=== PATIENT | male | born 1965 | race Caucasian/White ===

== ENCOUNTER 2025-05-23 23:00 | Observation (INO) | payer OTHER, SELFPAY ==
[2025-05-23 16:38] VITALS: BP 153/85
[2025-05-23 16:53] LABS: Hematocrit 48.8 % (39.0-52.0); Hemoglobin 17.3 g/dL (13.0-18.0); Mean Corp Hgb Conc. 35.5 g/dL (33.0-37.0); Mean Corpuscular Volume 87.3 fL (80.0-94.0); Nucleated Red Blood Cells % 0 % (-); Platelet Count 291 10^3/uL (130-400); Red Cell Dist. Width 11.9 % (11.5-14.5)
[2025-05-23 17:09] LABS: Urine Character Clear (Clear)
[2025-05-23 17:12] LABS: ALT (SGPT) 16 U/L (0-50); AST (SGOT) 29 U/L (17-59); Albumin 4.8 g/dl (3.5-5.0); Alkaline Phosphatase 80 U/L (38-126); Blood Urea Nitrogen 24 mg/dl (9-20); Calcium 10.6 mg/dl (8.4-10.2); Carbon Dioxide 27 mmol/L (22-30); Chloride 103 mmol/L (98-107); Glucose 107 mg/dl (70-99); Lipase 61 U/L (23-300); Potassium 4.3 mmol/L (3.5-5.1); Sodium 138 mmol/L (135-145); Total Protein 7.7 g/dl (6.3-8.2); eGFR 53.96
[2025-05-23 17:51] LABS: Urine Squamous Cell 0-2 /LPF (Few); Urine White Cell 0-2 /HPF (0-5)
--- NOTE | 2025-05-23 20:01 | ED.GENMED ---
History of Present Illness
<Rick Lopez MD, Resident - Last Filed: 05/23/25 22:15>
General
Chief Complaint: Abdominal Pain
Source: patient and significant other
Time Seen by Provider: 05/23/25 19:59
Nursing documentation reviewed up to this point in time: agreed with
History of Present Illness
History of Present Illness:
59 year old male with no significant past medical history comes to the ED due to sharp left lower quadrant abdominal pain that started around 10:30 pm last night. He has been having nausea and vomiting due to the pain. He says that the pain stays in
one area and has not had any fever or chills. He says that he has had no issues with urination and has not been around any sick contacts. He went to his primary care physician today who sent him to the ED to get imaging done because she was
suspecting possible Diverticulitis.
Past History
<Rick Lopez MD, Resident - Last Filed: 05/23/25 22:15>
Past History
ED Past Medical History: None
ED Past Surgical History: None
Patient has exhibited threatening behavior?: No
Social History
Tobacco: Non-smoker
Alcohol: Occasional
Drug: None
Personal:
Living: with family
Employment: Employed
Review of Systems
<Rick Lopez MD, Resident - Last Filed: 05/23/25 22:15>
Review of Systems
Allergies reviewed?: Yes
Constitutional: Reports no symptoms
EENT: Reports no symptoms
Respiratory: Reports no symptoms
Cardiac: Reports no symptoms
ABD/GI: Reports abdominal pain (Left lower quadrant), nausea and vomiting
: Reports no symptoms
Musculoskeletal: Reports no symptoms
Skin: Reports no symptoms
Neurological: Reports no symptoms
Endocrine: Reports no symptoms
Hematologic/Lymphatic: Reports no symptoms
Psychiatric: Reports no symptoms
Phy Exam
<Rick Lopez MD, Resident - Last Filed: 05/23/25 22:15>
General Physical Exam
General Presentation: mild distress
General Skin: warm and dry
General Habitus: normal
General Mental: alert
General Hydration: appears well hydrated
Cardiovascular Exam
Cardiovascular Exam: regular rate/rhythm, no edema and no murmur
Pulmonary Exam
Pulmonary Exam: lungs clear, no respiratory distress, no crackles and no wheezing
Gastrointestinal Exam
Gastrointestinal Exam: normal bowel sounds, soft and non distended
Palpation: left upper quadrant: No tenderness, left lower quadrant: Mild tenderness, right upper quadrant: No tenderness and right lower quadrant: No tenderness
Skin Exam
Skin Exam: normal color and warm/dry
Course
<Rick Lopez MD, Resident - Last Filed: 05/23/25 22:15>
Orders/Labs/Results
Orders:
Orders
05/23/25 16:47
Complete Blood Count/With Diff Urgent
Comprehensive Metabolic Panel Urgent
Lipase Urgent
Urinalysis Urgent
Date Specimen was Collected: 05/23/25
Time Specimen was Collected: 16:41
Urine Microscopic Urgent
Date Specimen was Collected: 05/23/25
Time Specimen was Collected: 16:41
05/23/25 20:12
IV Insert/Care/Rem.- Treatment PRN
0.9% Sodium Chloride 1000 ml [Nss] 1,000 ml IV BOLUS
05/23/25 20:13
CT Abd/pel Without Iv Or Oral Urgent
Comment:
Reason For Exam: Left lower quadrant sharp abdominal pain
05/23/25 21:03
HYDROmorphone [Dilaudid] 1 mg IV NOW STA
Ondansetron Injectable [Zofran] 4 mg IV NOW STA
Tamsulosin [Flomax] 0.4 mg PO NOW STA
Abnormal Lab Results
05/23/25
16:47
WBC 14.0 H 10^3/uL
(4.8-10.8)
Abs Immat Gran (auto) 0.1 H 10^3/uL
(0-0.05)
Absolute Neuts (auto) 11.0 H 10^3/uL
(1.4-6.5)
Absolute Monos (auto) 1.3 H 10^3/uL
(0.1-0.6)
Neutrophils % 78.4 H %
(42.2-75.2)
Lymphocytes % 10.9 L %
(20.5-51.1)
Monocytes % 9.5 H %
(1.7-9.3)
BUN 24 H mg/dl
(9-20)
Creatinine 1.5 H mg/dL
(0.7-1.3)
Glucose 107 H mg/dl
(70-99)
Calcium 10.6 H mg/dl
(8.4-10.2)
Urine Ketones 2+ A
(Negative)
Urine Occult Blood 4+ A
(Negative)
Urine RBC 11-15 A /HPF
(0-2)
Urine Albumin 1+ A
(Neg - Trace)
05/23/25 16:47
05/23/25 16:47
Vital Signs
Initial and Last Documented VS:
Initial Vital Signs
Temp Pulse Resp BP Pulse Ox
98.3 F 84 18 153/85 99
05/23/25 16:38 05/23/25 16:38 05/23/25 16:38 05/23/25 16:38 05/23/25 16:38
Last Documented Vital Signs
Temp Pulse Resp BP Pulse Ox
98.3 F 84 18 153/85 99
05/23/25 16:38 05/23/25 16:38 05/23/25 16:38 05/23/25 16:38 05/23/25 20:22
<Angelito Matthew, - Last Filed: 05/23/25 21:08>
Orders/Labs/Results
Orders:
Orders
05/23/25 16:47
Complete Blood Count/With Diff Urgent
Comprehensive Metabolic Panel Urgent
Lipase Urgent
Urinalysis Urgent
Date Specimen was Collected: 05/23/25
Time Specimen was Collected: 16:41
Urine Microscopic Urgent
Date Specimen was Collected: 05/23/25
Time Specimen was Collected: 16:41
05/23/25 20:12
IV Insert/Care/Rem.- Treatment PRN
0.9% Sodium Chloride 1000 ml [Nss] 1,000 ml IV BOLUS
05/23/25 20:13
CT Abd/pel Without Iv Or Oral Urgent
Comment:
Reason For Exam: Left lower quadrant sharp abdominal pain
05/23/25 21:03
HYDROmorphone [Dilaudid] 1 mg IV NOW STA
Ondansetron Injectable [Zofran] 4 mg IV NOW STA
Tamsulosin [Flomax] 0.4 mg PO NOW STA
Abnormal Lab Results
05/23/25
16:47
WBC 14.0 H 10^3/uL
(4.8-10.8)
Abs Immat Gran (auto) 0.1 H 10^3/uL
(0-0.05)
Absolute Neuts (auto) 11.0 H 10^3/uL
(1.4-6.5)
Absolute Monos (auto) 1.3 H 10^3/uL
(0.1-0.6)
Neutrophils % 78.4 H %
(42.2-75.2)
Lymphocytes % 10.9 L %
(20.5-51.1)
Monocytes % 9.5 H %
(1.7-9.3)
BUN 24 H mg/dl
(9-20)
Creatinine 1.5 H mg/dL
(0.7-1.3)
Glucose 107 H mg/dl
(70-99)
Calcium 10.6 H mg/dl
(8.4-10.2)
Urine Ketones 2+ A
(Negative)
Urine Occult Blood 4+ A
(Negative)
Urine RBC 11-15 A /HPF
(0-2)
Urine Albumin 1+ A
(Neg - Trace)
05/23/25 16:47
05/23/25 16:47
Vital Signs
Initial and Last Documented VS:
Initial Vital Signs
Temp Pulse Resp BP Pulse Ox
98.3 F 84 18 153/85 99
05/23/25 16:38 05/23/25 16:38 05/23/25 16:38 05/23/25 16:38 05/23/25 16:38
Last Documented Vital Signs
Temp Pulse Resp BP Pulse Ox
98.3 F 84 18 153/85 99
05/23/25 16:38 05/23/25 16:38 05/23/25 16:38 05/23/25 16:38 05/23/25 20:22
<Rick Lopez MD, Resident - Last Filed: 05/23/25 22:15>
MDM/Problems Addressed
Differential Diagnosis Includes:
Nephrolithiasis, Diverticulitis, Gastroenteritis
MDM/Problems Addressed:
59 year old male with no significant past medical history comes to the ED due to left lower quadrant sharp abdominal pain that began around 10:30pm last night.
UA shows presence of blood, increased Creatinine levels, and left lower abdominal pain all paint the picture more of left sided ureteral stone rather than Diverticulitis
Will get CT Abd/Pel w/o IV contrast to check for suspected stone
CT Abd/Pel showed 8-9mm calculus in the left ureteropelvic junction along with small bilateral nonobstructing renal calculi and sigmoid diverticulosis
Will give pain relief with IV Dilaudid 1gm, IVF Bolus, Zofran and Flomax
Pain better with IV Dilaudid but will admit for further supportive therapy
<Rick Lopez MD, Resident - Last Filed: 05/23/25 22:15>
*Pulse Oximetry
SaO2: 99
Oxygen Mode of Delivery: Room air
<Angelito Matthew, DO - Last Filed: 05/23/25 21:08>
*Radiology
Radiology exam reviewed: radiology read reviewed
*Pulse Oximetry
Patient hypoxic: no
*Critical Care Note
Total Time (30-74mins, 75-104mins- exclusive of procedures): Not Applicable
ED Attending Note
<Rick Lopez MD, Resident - Last Filed: 05/23/25 22:15>
-
Portions of this chart may have been created with voice recognition software.� Occasional wrong word or��sound alike� substitutions may have occurred due to the inherent limitations of voice recognition software.
<Angelito Matthew, DO - Last Filed: 05/23/25 21:08>
ED Attending Note
Patient seen and examined by attending physician: Yes
I performed a history and physical exam of patient and discussed management with resident, I reviewed resident's note and agree with documented findings and plan of care.: Yes
ED Attending Note:
Seen with resident examined independently less than 1 day left flank left lower abdominal pain vomiting x 1 describes 5 out of 10 UA noticed white count noted creatinine noted CT noted looks like a fairly big proximal stone on the left with another
1 in his kidney will hydrate, start Flomax and analgesics antiemetics
Discharge Plan
Departure
Patient Disposition: Admit
Date of Disposition: 05/23/25
Time of Disposition: 22:10
Admit to: Med/Surg
Presentation/result/management discussed w/ accepting MD/DO: Hospitalist
Condition: Fair
Discharge Problem:
Left ureteral stone
Referrals:
Jasmine Singletary MD [Family Provider, Family Practice]
Interventions
Interventions:
*Risk Screen - Suicide Last Done: 05/23/25 16:38
*General Assessment Last Done: 05/23/25 16:38
Discharge Date and Time
Print Language: [place] CITIZ[place]
[2025-05-23] MEDS: NSS 1000 IV ×2 (21:20→23:54)
[2025-05-23] MEDS: FLOMAX 0.4 MG PO (21:28)
[2025-05-23] MEDS: ZOFRAN 4 MG IV (21:29)
[2025-05-23] MEDS: DILAUDID 1 MG IV (21:31)
[2025-05-23 21:34] VITALS: BMI 34.5
--- NOTE | 2025-05-23 22:33 | HPS.HSE ---
Addendum entered and electronically signed by Tahir Urbina MD 05/28/25 14:18:
Home meds not available at time of H&P.
Original Note:
Family Physician
-
Family Physician: Jasmine Singletary
Chief Complaint
-
abdominal pain
History of Present Illness
59-year-old male past medical history of anxiety/depression, hypercholesterolemia, hypotestosteronism presenting with sharp left lower quadrant abdominal pain that started last night. Patient has been having nausea vomiting secondary to pain. No
fevers or chills. No issues with urination. No blood in the urine. Denies any prior history of kidney stones.
He drinks alcohol occasionally. Denies smoking. Denies drugs.
Medical History
Past Medical History
Past Medical History: Reports Other (anxiety/depression, hypercholesterolemia, hypotestosteronism)
Past Surgical History: Reports None
Social History
Tobacco: Non-smoker
Alcohol: Occasional
Drug: None
Family History
Family History: Not pertinent
Allergies / Home Medications
Allergies reflects when Allergies were last updated in [employer].
Home Medications with original date entered in [employer]
Allergy/Medication List:
Allergies
Allergy/AdvReac Type Severity Reaction Status Date / Time
hay fever Allergy sneezing, Uncoded 05/23/25 16:41
watery
eyes,
runny nose
Review of Systems
-
History Source: Patient
A 12 point ROS was completed and negative except as noted: Yes
Constitutional: Reports No Symptoms
EENT: Reports No Symptoms
Respiratory: Reports No Symptoms
Cardiac: Reports No Symptoms
Abdomen/GI: Reports See HPI
: Reports No Symptoms
Musculoskeletal: Reports No Symptoms
Skin: Reports No Symptoms
Neurological: Reports No Symptoms
Endocrine: Reports No Symptoms
Hematologic/Lymphatic: Reports No Symptoms
Psych: Reports No Symptoms
Physical Exam
Vital Signs
Vital Signs
Temp Pulse Resp BP Pulse Ox
98.3 F 84 18 153/85 99
05/23/25 16:38 05/23/25 16:38 05/23/25 16:38 05/23/25 16:38 05/23/25 20:22
Physical Exam
General: Well Developed, Well Nourished and No Apparent Distress
HEENT: NormoCephalic, Moist mucous membranes and Atraumatic
Respiratory: Clear
Cardiac: S1/S2 and Regular Rhythm; No Murmur or Rub
GI: Soft, Non Distended, Normal Bowel Sounds and Tender (LLQ ); No Organomegaly
Rectal: Deferred by Provider
Musculoskeletal: No Clubbing, No Cyanosis and No Edema
Skin: No Rash
Neuro: Nonfocal/grossly intact
Laboratory Results
-
05/23/25 16:47
05/23/25 16:47
Laboratory Results
Total Bilirubin 1.0 mg/dl (0.2-1.3) 05/23/25 16:47
AST 29 U/L (17-59) 05/23/25 16:47
ALT 16 U/L (0-50) 05/23/25 16:47
Alkaline Phosphatase 80 U/L (38-126) 05/23/25 16:47
Lipase 61 U/L (23-300) 05/23/25 16:47
Data Reviewed
-
Lab Data: Labs Reviewed by me
Old Records: Reviewed
Impression/Plan
-
IMPRESSION:
PLAN:
# Left ureteropelvic junction stone
-Urinalysis unremarkable
- CT abdomen pelvis shows 8 to 9 mm calculus at the left ureteropelvic junction with mild to moderate left renal collecting system dilatation and mild left perinephric stranding
- IV fluids
- Zofran
- Toradol, Dilaudid
- Tamsulosin
-Strain urine
- Urology consulted
- N.p.o. pastmidnight in case stone cannot be passed
Anxiety/depression
Hypercholesteremia
- Continue statin
Hypotestosteronism
- Takes testosterone
Full code
DVT prophylaxis�SCDs
N.p.o. postmidnight
[2025-05-23 22:40] VITALS: BP 162/79
--- NOTE | 2025-05-23 23:45 | PTCARENOTE ---
Patient arrived to [facility] [address] from ED, AAOx3, oriented to new room. Very pleasant, plan of care explained and all questions answered at this time. IVF per order, VSS, assessment on going. Patient aware he will NPO for possible OR in the morning .
[2025-05-23 23:50] VITALS: BP 141/89
[2025-05-23 23:51] VITALS: BMI 34.5
[2025-05-24] VITALS (9 sets, daily range): BP systolic 112–126; BP diastolic 62–75
[2025-05-24] MEDS: TORADOL 15 MG IV (03:36)
[2025-05-24] MEDS: NSS 1000 IV (06:08)
--- NOTE | 2025-05-24 06:09 | CONS.URO ---
Consultation
-
Date/Time Consultation Performed: 05/24/2025 0545
Performing Provider: Trae
Reason for Consultation: left ureteral stone
Medical History
History of Present Illness
Admission note: '59-year-old male past medical history of presenting with sharp left lower quadrant abdominal pain that started last night. Patient has been having nausea vomiting secondary to pain. No fevers or chills. No issues with urination.
No blood in the urine. Denies any prior history of kidney stones.
'
Past Medical History
Past Medical History: Other (anxiety/depression, hypercholesterolemia, hypogonadism)
Past Surgical History: None
Social History
Employment: Employed
Allergies/Home Medications
Allergies
Allergy/AdvReac Type Severity Reaction Status Date / Time
hay fever Allergy sneezing, Uncoded 05/23/25 16:41
watery
eyes,
runny nose
Home Medications
�Medication �Instructions �Recorded �Confirmed �Type
bupropion HCl 300 mg 24 hr tablet, 300 mg PO DAILY 05/24/25 05/24/25 History
extended release
simvastatin 20 mg tablet 20 mg PO DAILY 05/24/25 05/24/25 History
Review of Systems
-
Constitutional: Reports No Symptoms
Respiratory: Reports No Symptoms
Cardiac: Reports No Symptoms
Abdomen/GI: Reports Abdominal Pain, Nausea and Vomiting
: Reports No Symptoms
Physical Exam
Vital Signs
Vital Signs
Temp Pulse Resp BP Pulse Ox
98 F 79 16 141/89 98
05/23/25 23:50 05/23/25 23:50 05/23/25 23:50 05/23/25 23:50 05/23/25 23:50
Physical Exam
adult male asleep upon my room entry
General: No Apparent Distress
HEENT: Normocephalic
GI: Soft, Non Tender and Non Distended
Genito-urinary: No Costovertebral Tend
Skin: Warm
Neuro: Awake and Alert
Psych: Calm and Intact Judgement
Assessment / Plan
-
Left Ureteral Stone: 9 mm proximal, partially obstructing
Bilateral Renal Stone
Hypercalcemia
pain is well-managed
no evidence of infection
Patient offerred:
cysto, stone dislodgement, stent placement today with later definitive stone removal
or
discharge with return early this week for single surgery to remove all left urolithiasis
'I have a business trip this week, so I just want the stent now.'
Data Reviewed
-
CT Scan: Image personally visualized and interpreted
Lab Data: Labs Reviewed
Old Records: Reviewed
[2025-05-24 06:43] LABS: Hematocrit 43.6 % (39.0-52.0); Hemoglobin 15.1 g/dL (13.0-18.0); Mean Corp Hgb Conc. 34.6 g/dL (33.0-37.0); Mean Corpuscular Volume 88.8 fL (80.0-94.0); Nucleated Red Blood Cells % 0 % (-); Platelet Count 251 10^3/uL (130-400); Red Cell Dist. Width 11.9 % (11.5-14.5)
[2025-05-24 06:54] LABS: ALT (SGPT) 12 U/L (0-50); AST (SGOT) 21 U/L (17-59); Albumin 3.9 g/dl (3.5-5.0); Alkaline Phosphatase 68 U/L (38-126); Blood Urea Nitrogen 21 mg/dl (9-20); Calcium 9.1 mg/dl (8.4-10.2); Carbon Dioxide 25 mmol/L (22-30); Chloride 108 mmol/L (98-107); Estimated Creatinine Clearance 69 ml/min; Glucose 102 mg/dl (70-99); Sodium 138 mmol/L (135-145); Total Protein 6.2 g/dl (6.3-8.2); eGFR 53.96
[2025-05-24 07:04] LABS: Potassium 4.2 mmol/L (3.5-5.1)
[2025-05-24] MEDS: LIPITOR 10 MG PO (07:36)
[2025-05-24] MEDS: WELLBUTRIN XL (24 hour extended release) 300 MG PO (07:36)
[2025-05-24] MEDS: FLOMAX 0.4 MG PO (07:36)
--- NOTE | 2025-05-24 10:00 | CM ---
Addendum entered by Migel Argueta 05/24/25 14:37:
Discharge order noted.
Pt is aware and he stated his spouse will transport home.
No after care VN services indicated.
D/C plan: home no needs. Spouse to transport.
Original Note:
CM following re: discharge planning.
Reviewed pt's chart, met with pt.
Pt is a 59 year old male, admitted with OBS status and primary dx of sharp left lower quadrant abdominal pain. Per MD, stent placement today with later definitive stone removal. OBS status explained to the pt, pt expressed understanding, OBS letter
signed, placed on chart, pt has a copy.
Pt reports he lives with spouse and a daughter 2SH, 3 steps to enter, has 2 supportive children. pt described himself as independent in all areas [employer], drives, works.
PCP: Jasmine Singletary
Pharmacy: [facility].
D/C plan: home with anticipated no needs.
CM will follow with discharge plan updates as needed.
--- NOTE | 2025-05-24 10:28 | W.PN.HOSP.TC ---
Today's Communication/Plan
-
Discharge home
Assessment / Plan
Assessment / Plan
Admit diagnosis:
Kidney stone
Pre-admit diagnosis:
anxiety/depression,
hypercholesterolemia,
hypotestosteronism
Initial presentation and hospital course by problem
59-year-old man with a past medical history of anxiety/depression, hypercholesterolemia, hypotestosteronism presented with sharp left lower quadrant abdominal pain that started last night. Patient had been having nausea vomiting secondary to pain.
No fevers or chills. No issues with urination. No blood in the urine. Denies any prior history of kidney stones. He drinks alcohol occasionally. Denies smoking. Denies drugs.
Patient was seen by urology and they reported:
Pre-op Diagnosis: Left Ureteral Stone
Post-op Diagnosis: same
Procedure Performed: cysto, left ureteral stone dislodgement, stenting
Anesthesia Type: LMA
Specimen / Cultures: none
Estimated Blood Loss: none
Complications: none
Operative Findings: 9 mm impacted left proximal ureteral stone
Recommendation:
PATIENT WILL BE FIT FOR DISCHARGE UROLOGICALLY AFTER PACU
I saw and examined patient, he felt well and wants to go home.
He has follow up with Urology worked out.
Anticipated Discharge: Today
Subjective/Interval History
-
Date of Service: May 24, 2025
Feels well. Would like to go home.
Objective Data
-
Labs:
Laboratory Results
05/24/25
06:24
WBC 9.5
Hgb 15.1
Hct 43.6
Plt Count 251
Sodium 138
Potassium 4.2
Chloride 108 H
Carbon Dioxide 25
BUN 21 H
Creatinine 1.5 H
Glucose 102 H
Calcium 9.1 D
Total Bilirubin 0.7
AST 21
ALT 12
Alkaline Phosphatase 68
Vital Signs:
Vital Signs
Temp Pulse Resp BP Pulse Ox
97.9 F 78 16 125/74 96
05/24/25 07:05 05/24/25 07:05 05/24/25 07:05 05/24/25 07:05 05/24/25 07:05
I&O
05/23/25 05/24/25 05/25/25
06:59 06:59 06:59
Output Total 900 / 900
Balance -900 / -900
Review of Systems
-
History Source: Patient
All other systems: Reviewed and negative
Physical Exam
-
General: Well Developed, Well Nourished, No Apparent Distress and Comfortable
HEENT: Normocephalic, Atraumatic, Moist Mucous Membranes, Nose Appears Normal and Ears Appear Normal
Respiratory: Clear to Auscultation
Cardiac: Regular Rhythm and S1/S2
GI: Soft, Nontender and Nondistended
Musculoskeletal: No Clubbing, No Cyanosis and No Edema
Skin: Warm and Dry
Neuro: Awake, Alert and Oriented
Psych: Calm
Data Reviewed
-
Labs: Labs Reviewed by me
--- NOTE | 2025-05-24 11:23 | W.IMMPOSTOP ---
Surgical Immed Post Op Note
-
Primary Surgeon: Trae
Pre-op Diagnosis: Left Ureteral Stone
Post-op Diagnosis: same
Procedure Performed: cysto, left ureteral stone dislodgement, stenting
Anesthesia Type: LMA
Specimen / Cultures: none
Estimated Blood Loss: none
Complications: none
Operative Findings: 9 mm impacted left proximal ureteral stone
and daughter apprised in family waiting area
PATIENT WILL BE FIT FOR DISCHARGE UROLOGICALLY AFTER PACU.
--- NOTE | 2025-05-24 14:11 | W.DCSUMMARY ---
Discharge Summary
Discharge Data
Date of Admission: 05/23/25
Date of Discharge: 05/24/25
-
Pending Results: No
Hospital Course
Admit diagnosis:
Kidney stone
Pre-admit diagnosis:
anxiety/depression,
hypercholesterolemia,
hypotestosteronism
Initial presentation and hospital course by problem
59-year-old man with a past medical history of anxiety/depression, hypercholesterolemia, hypotestosteronism presented with sharp left lower quadrant abdominal pain that started last night. Patient had been having nausea vomiting secondary to pain.
No fevers or chills. No issues with urination. No blood in the urine. Denies any prior history of kidney stones. He drinks alcohol occasionally. Denies smoking. Denies drugs.
Patient was seen by urology and they reported:
Pre-op Diagnosis: Left Ureteral Stone
Post-op Diagnosis: same
Procedure Performed: cysto, left ureteral stone dislodgement, stenting
Anesthesia Type: LMA
Specimen / Cultures: none
Estimated Blood Loss: none
Complications: none
Operative Findings: 9 mm impacted left proximal ureteral stone
Recommendation:
PATIENT WILL BE FIT FOR DISCHARGE UROLOGICALLY AFTER PACU
I saw and examined patient, he felt well and wants to go home.
He has follow up with Urology worked out.
Anticipated Discharge: Today
Discharge Plan
-
Patient Disposition: Home (Routine Discharge)
Discharge Diagnosis/Procedures: Urolithiasis, s/p dislodgement of left ureteral stone and stent placement
Hypercalcemia
Diet: No restrictions
Activity: No restrictions
Driving Restrictions: No driving for 24 hours
Bathing Restrictions: None
Blood Work: repeat blood test: calcium and PTH
Referrals:
Immanuel Larkin MD [Active, Urology]
Referral Note: contact office to arrange surgery
Jasmine Singletary MD [Family Provider, Family Practice]
Prescriptions:
New
tamsulosin 0.4 mg capsule
0.4 mg PO DAILY Qty: 30 1RF
Uro-MP 118-10-40.8-36 mg capsule
1 tab PO QID PRN (Reason: bladder irritation) Qty: 30 1RF
Continued
simvastatin 20 mg Tablet
20 mg PO DAILY
bupropion HCl 300 mg Tablet Extended Release 24 Hr
300 mg PO DAILY
Discharge Orders:
Discharge Patient (As Directed); Ordered 05/24/25
Ordered By: Ganesh Roth
Discharge Date and Time
Print Language: [place]ITH[place]
== END 2025-05-24 14:47 | disposition home or self-care (01) ==
LOC: 2 SOUTH 23:00
PROVIDERS: Student in an Organized Health Care Education/Training Program; ADMITTING PHYSICIAN Hospitalist; ATTENDING PHYSICIAN Internal Medicine; CONSULT PHYSICIAN Specialist; EMERGENCY PHYSICIAN Emergency Medicine; FAMILY PHYSICIAN Family Medicine
DX: N20.2 Calculus of kidney with calculus of ureter (principal); R10.9 Unspecified abdominal pain; R11.2 Nausea with vomiting, unspecified; R79.89 Other specified abnormal findings of blood chemistry; K57.30 Diverticulosis of large intestine without perforation or abscess without bleeding; F32.A Depression, unspecified; E83.52 Hypercalcemia; F41.9 Anxiety disorder, unspecified; E78.00 Pure hypercholesterolemia, unspecified; Z79.899 Other long term (current) drug therapy; Z79.890 Hormone replacement therapy
CPT/HCPCS: 52332; 74018; 74176; 76000; 80053; 81003; 81015; 83690; 85025; 96361; 96374; 96375; 99284; C2617; G0378

== ENCOUNTER 2025-06-13 06:15 | Day surgery (SDC) | payer OTHER, SELFPAY ==
[2025-06-13] VITALS (8 sets, daily range): BP systolic 114–128; BP diastolic 75–88; BMI 33.5
== END 2025-06-13 11:45 | disposition home or self-care (01) ==
LOC: SDS 06:15
PROVIDERS: ATTENDING PHYSICIAN Specialist
DX: N20.2 Calculus of kidney with calculus of ureter (principal)
CPT/HCPCS: 52356; 74018; 76000; 82365; 93005; C2617